=== PATIENT | male | born 1950 | race Caucasian/White ===

== ENCOUNTER 2016-06-13 05:41 | Emergency (ER) | payer BC ==
[~2016-06-13] VITALS: Ht 172.7 cm; Wt 70.9 kg
[~2016-06-13 05:41] MED LIST: ANTIVERT25 MG PO; BACK & BODY PA1 EACH PO; FLEXERIL10 MG PO; HYDROCODON-ACE1 EAC7 PO; MAG-AL PLUS SUS30 ML PO; METOPROLOL TART25 MG PO; MOTRIN600 MG PO; PRILOSEC10 MG PO; PROTONIX40 MG PO; RANITIDINE HCL300 MG PO; ZANTAC300 MG PO; ZESTRIL,PRINIVI40 MG PO
[2016-06-13 06:38] LABS: EOSINOPHIL (%) 2.2 % (0-5); EOSINOPHIL COUNT 0.1 K/uL (0-0.3); HEMATOCRIT 40.9 % (38.0-50.0); IMMATURE GRANULOCYTE (%) 0.3 % (0.0-0.7); INSTRUMENT ABS NEUTROPHIL CT 4.7 K/uL; LYMPHOCYTE COUNT 0.9 K/uL (1.0-2.8); MCH 30.3 PG (29.0-34.0); MCHC 34.5 G/DL (30.0-36.0); MCV 87.8 FL (86-99); MEAN PLAT.VOLUME 8.3 uM^3 (9.0-12.4); MONOCYTE (%) 7.4 % (3-12); MONOCYTE COUNT 0.5 K/uL (0-0.8); NEUTROPHIL (%) 76.2 % (45-76); NEUTROPHIL COUNT 4.7 K/uL (1.8-6.4); PLATELET COUNT 211 K/uL (156-360); RBC DIS.WIDTH-CV 13.1 % (11.8-14.6); RBC DIS.WIDTH-SD 42.1 % (39-53); RED BLOOD COUNT 4.66 M/uL (4.00-5.50); WHITE BLOOD COUNT 6.2 K/uL (4.1-10.2)
[2016-06-13 06:46] LABS: CHLORIDE 106 mEq/L (99-109); POTASSIUM 4.8 mEq/L (3.7-5.4); SODIUM 136 mEq/L (136-147)
[2016-06-13 06:48] LABS: GLUCOSE 110 mg/dL (70-99)
[2016-06-13 06:50] LABS: ANION GAP 5 MEQ/L (2-14)
[2016-06-13 06:52] LABS: GFR ESTIMATE (CALCULATED) > 59 mL/min/
[2016-06-13 06:53] LABS: UREA NITROGEN (BUN) 21 mg/dL (9-23)
[2016-06-13] MEDS ORDERED: ANTIVERT25 MG PO (08:53)
[2016-06-13 09:16] VITALS: BP 126/80
== END 2016-06-13 09:21 | disposition home or self-care (01) ==
LOC: EME 05:41
PROVIDERS: Emergency Medicine
DX: R42 Dizziness and giddiness (principal); I10 Essential (primary) hypertension; K21.9 Gastro-esophageal reflux disease without esophagitis; Z86.73 Personal history of transient ischemic attack (TIA), and cerebral infarction without residual deficits
CPT/HCPCS: 70450; 80048; 85025; 93005; 99281; 99284

== ENCOUNTER 2016-08-07 11:40 | Emergency (ER) | payer BC ==
[~2016-08-07] VITALS: Ht 172.7 cm; Wt 70.9 kg
[2016-08-07 13:34] LABS: HEMATOCRIT 41.9 % (38.0-50.0); MCH 30.1 PG (29.0-34.0); MCHC 34.4 G/DL (30.0-36.0); MCV 87.7 FL (86-99); MEAN PLAT.VOLUME 8.1 uM^3 (9.0-12.4); PLATELET COUNT 200 K/uL (156-360); RBC DIS.WIDTH-CV 13.2 % (11.8-14.6); RBC DIS.WIDTH-SD 42.5 % (39-53); RED BLOOD COUNT 4.78 M/uL (4.00-5.50)
[2016-08-07 13:43] LABS: CHLORIDE 106 mEq/L (99-109); POTASSIUM 4.4 mEq/L (3.7-5.4); SODIUM 137 mEq/L (136-147)
[2016-08-07 13:45] LABS: GLUCOSE 88 mg/dL (70-99)
[2016-08-07 13:46] LABS: ANION GAP 8 MEQ/L (2-14)
[2016-08-07 13:48] LABS: GFR ESTIMATE (CALCULATED) > 59 mL/min/
[2016-08-07 13:49] LABS: UREA NITROGEN (BUN) 22 mg/dL (9-23)
[2016-08-07 15:07] LABS: ADD MIUA? NO; BILIRUBIN NEGATIVE; BLOOD NEGATIVE; COLOR YELLOW ((YELLOW)); GLUCOSE (STRIP) NEGATIVE; KETONES NEGATIVE; LEUKOCYTES NEGATIVE; NITRITE NEGATIVE; PROTEIN (STRIP) NEGATIVE; SPECIFIC GRAVITY 1.011 (1.000-1.030); UCUL ADDED? NO; UROBILINOGEN 0.2 MG/DL (0.2-1.0)
[2016-08-07 15:12] LABS: TROP-I INTERPRETATION NEGATIVE; TROPONIN-I < 0.01 ng/mL (0.0-0.30)
[2016-08-07 16:33] VITALS: BP 162/92
== END 2016-08-07 16:33 | disposition home or self-care (01) ==
LOC: EME 11:40
DX: R11.2 Nausea with vomiting, unspecified (principal); I10 Essential (primary) hypertension; K21.9 Gastro-esophageal reflux disease without esophagitis
CPT/HCPCS: 71020; 80048; 81003; 84484; 85027; 93005; 99281; 99283

== ENCOUNTER 2016-12-04 09:06 | Emergency (ER) | payer BC, OTHER ==
[~2016-12-04] VITALS: Ht 172.7 cm; Wt 70.0 kg
[2016-12-04 09:46] LABS: HEMATOCRIT 43.3 % (38.0-50.0); MCH 29.9 PG (29.0-34.0); MCHC 33.9 G/DL (30.0-36.0); MEAN PLAT.VOLUME 8.1 uM^3 (9.0-12.4); PLATELET COUNT 222 K/uL (156-360); RBC DIS.WIDTH-CV 13.1 % (11.8-14.6); RBC DIS.WIDTH-SD 42.4 % (39-53); RED BLOOD COUNT 4.92 M/uL (4.00-5.50); WHITE BLOOD COUNT 5.9 K/uL (4.1-10.2)
[2016-12-04 10:07] LABS: TROP-I INTERPRETATION NEGATIVE; TROPONIN-I < 0.01 ng/mL (0.0-0.30)
[2016-12-04 10:09] LABS: CHLORIDE 105 mEq/L (99-109); POTASSIUM 4.5 mEq/L (3.7-5.4); SODIUM 137 mEq/L (136-147)
[2016-12-04 10:10] LABS: GLUCOSE 95 mg/dL (70-99)
[2016-12-04 10:12] LABS: ANION GAP 7 MEQ/L (2-14)
[2016-12-04 10:14] LABS: GFR ESTIMATE (CALCULATED) > 59 mL/min/
[2016-12-04 10:15] LABS: UREA NITROGEN (BUN) 31 mg/dL (9-23)
[2016-12-04 13:32] LABS: TROP-I INTERPRETATION NEGATIVE; TROPONIN-I < 0.01 ng/mL (0.0-0.30)
[2016-12-04] MEDS ORDERED: MOTRIN800 MG PO (14:12)
[2016-12-04 15:29] VITALS: BP 120/78
== END 2016-12-04 15:29 | disposition home or self-care (01) ==
LOC: EME 09:06
PROVIDERS: Emergency Medicine
DX: R07.89 Other chest pain (principal); K21.9 Gastro-esophageal reflux disease without esophagitis; I10 Essential (primary) hypertension; Z86.73 Personal history of transient ischemic attack (TIA), and cerebral infarction without residual deficits
CPT/HCPCS: 71020; 80048; 84484; 85027; 93005; 99281; 99285